=== PATIENT | female | born 1970 | race Caucasian/White ===

== ENCOUNTER 2019-11-13 21:17 | Emergency (ER) | payer SELFPAY ==
[~2019-11-13] VITALS: Ht 157.5 cm; Wt 82.0 kg
[2019-11-13] MEDS ORDERED: IBUPROFEN 600MG TABLET PO STA (22:51)
[2019-11-14 00:14] LABS: CLARITY URINE CLOUDY (CLEAR); COLOR URINE RED (YELLOW); KETONES URINE NEGATIVE (NEGATIVE); LEUKOCYTE ESTERASE URINE 1+ (NEGATIVE); NITRITE URINE NEGATIVE (NEGATIVE); OCCULT BLOOD URINE 3+ (NEGATIVE); PROTEIN URINE 1+ (NEGATIVE); SPECIFIC GRAVITY URINE 1.018 (1.005-1.030); UROBILINOGEN URINE 0.2 E.U./dL (0.2-1.0)
[2019-11-14] MEDS ORDERED: ACETAMINOPHEN 325MG TABLET PO STA (01:19)
[2019-11-14 02:05] VITALS: BP 172/91
== END 2019-11-14 02:49 | disposition home or self-care (01) ==
LOC: ER 21:17
DX: J98.01 Acute bronchospasm (principal); N39.0 Urinary tract infection, site not specified; R51 Headache; I10 Essential (primary) hypertension; E11.9 Type 2 diabetes mellitus without complications
CPT/HCPCS: 71045; 81003; 87070; 87430; 99284

== ENCOUNTER 2024-04-04 14:05 | Emergency (ER) | payer SELFPAY ==
[~2024-04-04] VITALS: Ht 152.4 cm; Wt 68.0 kg
[2024-04-04 14:17] VITALS: O2SAT 100
[2024-04-04] MEDS: ACETAMINOPHEN 325MG TABLET PO ONE (15:46)
[2024-04-04] MEDS ORDERED: ACET-2708 MT (15:49)
[2024-04-04] MEDS ORDERED: ONDA-239 PO (15:49)
[2024-04-04 16:28] VITALS: BP 170/84; PULSE 75; RESP 18; TEMP 37.1; O2SAT 100
== END 2024-04-04 16:28 | disposition home or self-care (01) ==
LOC: ER 14:11
DX: S00.83XA Contusion of other part of head, initial encounter (principal); E11.9 Type 2 diabetes mellitus without complications; I10 Essential (primary) hypertension; Z98.890 Other specified postprocedural states; Z79.899 Other long term (current) drug therapy; X58.XXXA Exposure to other specified factors, initial encounter; Y93.89 Activity, other specified; Y92.89 Other specified places as the place of occurrence of the external cause; Y99.0 Civilian activity done for income or pay
CPT/HCPCS: 99284